=== PATIENT | male | born 1965 | race Caucasian/White ===

== ENCOUNTER 2022-12-28 17:25 | Emergency (ER) | payer OTHER ==
[~2022-12-28] VITALS: Ht 175.3 cm; Wt 107.3 kg
--- OUTSIDE RECORDS SUMMARY | 2022-12-28 17:28 | XMS ---
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 Tania has no Care Guidelines for this patient. [place] VISIT COUNT (12 MO.) 1 EDILMA Stephen TOTAL 1 NOTE: Visits indicate total known visits. ED/C VISIT TRACKING (12 MO.) 12/28/2022 17:25 ED[facility]MA [facility] [place] TYPE: Emergency COMPLAINT: - SUICIDAL IDEATIONS INPATIENT VISIT TRACKING (12 MO.) No inpatient visits to display in this time frame [id number]
[2022-12-28 18:47] LABS: BASOPHILS 2.3 % (0-2); EOSINOPHILS 5.6 % (0-6); HEMATOCRIT 44.7 % (35.0-50.0); HEMOGLOBIN 14.6 g/dL (12.0-18.0); LYMPHOCYTES 43.1 % (24-44); MCH 29.7 (27-36); MCHC 32.7 g/dl (30-36); MCV 90.9 fl (81-99); MONOCYTES 8.7 % (0-12); NEUTROPHILS 40.3 % (39-80); PLATELET COUNT 521 K/uL (140-440); RBC 4.92 M/ul (4.3-5.7); RDW 17.2 (10.5-15.0)
[2022-12-28 19:12] LABS: ACETAMINOPHEN 0 ug/mL (10-30); ALBUMIN 3.6 g/dL (3.4-5.0); ALBUMIN/GLOBULIN RATIO 0.88 (1.1-2.4); ALCOHOL, MEDICAL 285 ng/dL (<3); ALKALINE PHOSPHATASE 101 U/L (46-116); ALT (SGPT) 138 U/L (14-59); ANION GAP 17.3 (7-21); AST (SGOT) 98 U/L (15-37); BILIRUBIN, TOTAL 0.2 ng/dL (0.2-1.0); CALCIUM 8.6 mg/dL (8.5-10.1); CARBON DIOXIDE 24 mmol/L (21-32); CHLORIDE 105 mmol/L (98-107); CREATININE, SERUM 0.73 mg/dL (0.70-1.30); GLOMERULAR FILTRATION RATE,EST 105 mL/min (>60); POTASSIUM 4.3 mmol/L (3.5-5.1); PROTEIN, TOTAL 7.7 g/dL (6.4-8.2); SALICYLATE 1.4 mg/dL (2.8-20.0); TSH, 3RD GENERATION 0.913 uIU/mL (0.358-3.740); UREA NITROGEN 13 mg/dL (7-18)
[2022-12-28 21:30] LABS: BILIRUBIN, URINE NEGATIVE (negative); BLOOD/HGB, URINE NEGATIVE (Negative); KETONE, URINE NEGATIVE (Negative); LEUK ESTERASE, URINE NEGATIVE (negative); NITRITE, URINE NEGATIVE (negative); PH, URINE 5.5 (5-7)
[2022-12-28 21:44] LABS: AMPHETAMINES, URINE NEGATIVE (NEGATIVE); BARBITURATES, URINE NEGATIVE (NEGATIVE); BENZODIAZEPINE, URINE NEGATIVE (NEGATIVE); BUPRENORPHINE, URINE NEGATIVE (NEGATIVE); CANNABINOID, URINE NEGATIVE (NEGATIVE); COCAINE, URINE NEGATIVE (NEGATIVE); ECSTASY, URINE NEGATIVE (NEGATIVE); FENTANYL, URINE NEGATIVE (NEGATIVE); METHADONE, URINE NEGATIVE (NEGATIVE); OPIATES, URINE NEGATIVE (NEGATIVE); OXYCODONE, URINE NEGATIVE (NEGATIVE); PHENCYCLIDINE, URINE NEGATIVE (NEGATIVE)
--- NOTE | 2022-12-29 06:55 | EKG ---
[facility] [address] [place], [place] [address] Signed Sinus rhythm with frequent premature ventricular complexes Nonspecific ST and T wave abnormality Abnormal ECG No previous ECGs available Confirmed by MG FRIEDMAN MD ([id number]) on 12/29/2022 6:55:38 AM Electronically Signed By: MG FRIEDMAN 12/29/22 0655 PATIENT NAME: MICH SWENSON Electrocardiogram DATE OF : 63 PHYSICIAN: MG FRIEDMAN REPORT #: [id number] REPORT IS CONFIDENTIAL AND NOT TO BE RELEASED WITHOUT AUTHORIZATION
[2022-12-29 11:27] VITALS: BP 118/74
== END 2022-12-29 11:28 | disposition home or self-care (01) ==
LOC: ED 17:25
PROVIDERS: Emergency Medicine
DX: R45.851 Suicidal ideations (principal); F10.129 Alcohol abuse with intoxication, unspecified; Z91.148 Patient's other noncompliance with medication regimen for other reason
CPT/HCPCS: 36415; 80053; 80307; 81003; 84443; 85025; 93005; 93010; 96372; 99285-25; A9270-GY; G0480; J1200; J1630; J2060

== ENCOUNTER 2023-01-12 16:52 | Emergency (ER) | payer OTHER ==
[~2023-01-12] VITALS: Ht 175.3 cm; Wt 107.3 kg
--- OUTSIDE RECORDS SUMMARY | 2023-01-12 16:55 | XMS ---
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 Tania has no Care Guidelines for this patient. [place] VISIT COUNT (12 MO.) 3 [facility] [address] [facility] Regino Ospina TOTAL 9 NOTE: Visits indicate total known visits. ED/[facility] VISIT TRACKING (12 MO.) 01/12/2023 16:53 [facility] [place] [facility] COMPLAINT: - MEDICAL CLEARANCE 12/28/2022 17:25 [facility] [place] [facility] COMPLAINT: - SUICIDAL IDEATIONS DIAGNOSES: - Alcohol abuse with intoxication, unspecified - Suicidal ideations - PATIENT'S OTHER NONCOMPL WITH MEDS REGIMEN FOR OTH 09/20/2022 16:02 [facility] [place] [facility] COMPLAINT: - CHEST PAIN 08/20/2022 01:[address] [facility] Vincent ELIM TAYLOR [place] TYPE: Emergency DIAGNOSES: - Dorsalgia, unspecified - Other chest pain - Chest Pain 05/23/2022 11:45 [facility] [place] TYPE: Emergency DIAGNOSES: - Cellulitis of right lower limb - ankle pain, possible infection - Foot Swelling 05/20/2022 18:41 [facility] [place] TYPE: Emergency COMPLAINT: - MEDICAL 02/16/2022 18:38 [facility] TYPE: Emergency COMPLAINT: - injured lower back from fall DIAGNOSES: - Contusion of abdominal wall, initial encounter - Other acute postprocedural pain - Back Pain - injured lower back from fall 02/15/2022 18:19 [facility] TYPE: Emergency COMPLAINT: - post-op pain DIAGNOSES: - Other acute postprocedural pain - post-op pain - Post-op Problem 02/13/2022 11:18 [facility] OR [facility] TYPE: Emergency COMPLAINT: - right foot post surgical bleeding DIAGNOSES: - Other acute postprocedural pain - Post-op Problem - right foot post surgical bleeding INPATIENT VISIT TRACKING (12 MO.) No inpatient visits to display in this time frame [email or web address]
[2023-01-12 17:39] LABS: HEMATOCRIT 44.7 % (35.0-50.0); HEMOGLOBIN 14.8 g/dL (12.0-18.0); MCHC 33.1 g/dl (30-36); MCV 90.6 fl (81-99); PLATELET COUNT 301 K/uL (140-440); RBC 4.93 M/ul (4.3-5.7)
[2023-01-12 17:46] LABS: BILIRUBIN, URINE NEGATIVE (negative); BLOOD/HGB, URINE NEGATIVE (Negative); KETONE, URINE NEGATIVE (Negative); LEUK ESTERASE, URINE NEGATIVE (negative); NITRITE, URINE NEGATIVE (negative); PH, URINE 6.5 (5-7)
[2023-01-12 17:58] LABS: ACETAMINOPHEN 0 ug/mL (10-30); ALBUMIN 3.9 g/dL (3.4-5.0); ALKALINE PHOSPHATASE 108 U/L (46-116); ALT (SGPT) 56 U/L (14-59); ANION GAP 15.1 (7-21); AST (SGOT) 52 U/L (15-37); BILIRUBIN, TOTAL 0.4 ng/dL (0.2-1.0); BUN/CREATININE RATIO 7.79 (6.0-28.6); CALCIUM 8.1 mg/dL (8.5-10.1); CARBON DIOXIDE 29 mmol/L (21-32); CHLORIDE 103 mmol/L (98-107); CREATININE, SERUM 0.77 mg/dL (0.70-1.30); GLOMERULAR FILTRATION RATE,EST 104 mL/min (>60); POTASSIUM 3.1 mmol/L (3.5-5.1); PROTEIN, TOTAL 7.8 g/dL (6.4-8.2); SALICYLATE 1.1 mg/dL (2.8-20.0); TSH, 3RD GENERATION 1.949 uIU/mL (0.358-3.740); UREA NITROGEN 6 mg/dL (7-18)
[2023-01-12 18:01] LABS: BASOPHILS, MANUAL DIFF 2; EOSINOPHILS, MANUAL DIFF 4; LYMPHOCYTES, MANUAL DIFF 75; MONOCYTES, MANUAL DIFF 1; NEUTROPHILS, MANUAL DIFF 18
[2023-01-12 18:01] LABS: AMPHETAMINES, URINE NEGATIVE (NEGATIVE); BARBITURATES, URINE NEGATIVE (NEGATIVE); BENZODIAZEPINE, URINE NEGATIVE (NEGATIVE); BUPRENORPHINE, URINE NEGATIVE (NEGATIVE); CANNABINOID, URINE NEGATIVE (NEGATIVE); COCAINE, URINE NEGATIVE (NEGATIVE); ECSTASY, URINE NEGATIVE (NEGATIVE); FENTANYL, URINE NEGATIVE (NEGATIVE); METHADONE, URINE NEGATIVE (NEGATIVE); OPIATES, URINE NEGATIVE (NEGATIVE); OXYCODONE, URINE NEGATIVE (NEGATIVE); PHENCYCLIDINE, URINE NEGATIVE (NEGATIVE)
[2023-01-12 18:04] LABS: ALCOHOL, MEDICAL 407 ng/dL (<3)
[2023-01-13 20:08] VITALS: BP 150/93
== END 2023-01-13 20:00 | disposition home or self-care (01) ==
LOC: ED 16:52
PROVIDERS: Emergency Medicine
DX: R45.851 Suicidal ideations (principal); Z11.52 Encounter for screening for COVID-19
CPT/HCPCS: 36415; 80053; 80307; 81003; 84443; 85025; 96365; 96366; 99284-25; A9270; A9270-GY; G0480; J3411; J7030; U0002